=== PATIENT | female | born 1995 | race Caucasian/White ===

== ENCOUNTER 2016-07-15 17:05 | Outpatient (CLI) | payer OTHER ==
[~2016-07-15] VITALS: Ht 162.6 cm; Wt 77.1 kg
[~2016-07-15 17:05] MED LIST: BACTRIM,SEPT1 TABLET PO; FEOSOL325 MG PO; FLEXERIL10 MG PO; Feosol PO; IRON325 MG PO; KEFLEX500 MG PO; Keflex PO; MACROBID100 MG PO; MOTRIN800 MG PO; Motrin PO; NAPROSYN500 MG PO; Natalcare Rx,Pramile PO; PEN-VEE K,VEET500 MG; PERCOCET 5/31 TABLET PO; PHENERGAN PO; PHENERGAN25 MG PR; PRENATAL ONE T1 EACH PO; PRENATAL TABLE1 EAC3 PO; PROMETHAZINE HC25 M1 PO; REGLAN5 MG PO; TORADOL10 MG PO; ULTRACET1 TABLET PO; ULTRAM50 MG PO; VICODIN 5-3001 EACH PO; VICODIN,LORT1 TABLET PO; WELLBUTRIN100 MG PO; ZOFRAN ODT4 MG PO; ZOFRAN4 MG PO; ZOFRAN8 MG PO; ~No Medications
[2016-07-15 17:38] VITALS: BP 143/83
== END 2016-07-15 19:13 | disposition home or self-care (01) ==
LOC: LDRP-OP 17:05 → 2WEST 17:06
DX: O26.893 Other specified pregnancy related conditions, third trimester (principal); Z3A.37 37 weeks gestation of pregnancy
CPT/HCPCS: 59025; G0378

== ENCOUNTER 2016-07-31 03:14 | Inpatient (IN) | payer OTHER ==
[2016-07-31] VITALS (31 sets, daily range): BP systolic 106–149; BP diastolic 56–84
[~2016-07-31] VITALS: Ht 162.6 cm; Wt 79.8 kg
[2016-07-31 04:26] LABS: EOSINOPHIL (%) 0.3 % (0-5); HEMATOCRIT 29.6 % (36.0-46.0); IMMATURE GRANULOCYTE (%) 0.2 % (0.0-0.7); IMMATURE GRANULOCYTE COUNT 0.2 K/uL; LYMPHOCYTE COUNT 3.1 K/uL (1.0-2.8); MCH 27.4 PG (29.0-34.0); MCHC 33.4 G/DL (30.0-36.0); MEAN PLAT.VOLUME 10.7 uM^3 (9.5-12.4); MONOCYTE (%) 5.6 % (3-12); MONOCYTE COUNT 0.7 K/uL (0-0.8); NEUTROPHIL (%) 69.6 % (45-76); NEUTROPHIL COUNT 8.9 K/uL (1.8-6.4); PLATELET COUNT 219 K/uL (156-360); RBC DIS.WIDTH-CV 13.1 % (11.8-14.6); RBC DIS.WIDTH-SD 37.7 % (39-53); RED BLOOD COUNT 3.61 M/uL (3.80-5.20); WHITE BLOOD COUNT 12.8 K/uL (4.1-10.2)
[2016-07-31 05:54] LABS: AMPHETAMINES QUANT VALUE 0 NG/ML; BARBITUATES QUANT VALUE 0 NG/ML; BENZODIAZEPINES QUANT VALUE 0 NG/ML; BENZODIAZEPINES, URINE SCREEN Negative (200 ng/mL); MARIJUANA QUANT VALUE 0 NG/ML; OPIATES QUANTITATIVE VALUE 0 NG/ML; PHENCYCLIDINE QUANT VALUE 0 NG/ML
[2016-07-31] MEDS ORDERED: IBUPROFEN800 MG PO (19:57)
[2016-08-01 08:05] VITALS: BP 124/69
[2016-08-01 15:24] VITALS: BP 122/63
[2016-08-01 23:34] VITALS: BP 124/78
[2016-08-02 07:55] VITALS: BP 121/62
[2016-08-02] MEDS ORDERED: SERTRALINE HCL50 MG PO (09:24)
== END 2016-08-02 13:20 | disposition home or self-care (01) | DRG 775 ==
LOC: LDRP-OP 03:14 → 2WEST 03:15 → LDRP-OP 08-28 21:25
PROVIDERS: Midwife
PROC: 10E0XZZ Delivery of Products of Conception, External Approach (ICD-10-PCS; principal; 2016-07-31)
DX: O99.02 Anemia complicating childbirth (principal); F33.9 Major depressive disorder, recurrent, unspecified; Z37.0 Single live birth; Z3A.40 40 weeks gestation of pregnancy; O76 Abnormality in fetal heart rate and rhythm complicating labor and delivery; D50.8 Other iron deficiency anemias; O99.344 Other mental disorders complicating childbirth; O69.81X1 Labor and delivery complicated by cord around neck, without compression, fetus 1
CPT/HCPCS: 80306 90; 85025; C1755; J0595; J3010; J7120

== ENCOUNTER 2016-09-20 14:28 | Emergency (ER) | payer OTHER ==
[~2016-09-20] VITALS: Ht 162.6 cm; Wt 75.0 kg
[~2016-09-20 14:28] MED LIST changes: +IBUPROFEN800 MG PO; +SERTRALINE HCL50 MG PO
[2016-09-20 15:19] LABS: EOSINOPHIL (%) 1.8 % (0-5); EOSINOPHIL COUNT 0.1 K/uL (0-0.3); HEMATOCRIT 33.4 % (36.0-46.0); IMMATURE GRANULOCYTE (%) 0.2 % (0.0-0.7); INSTRUMENT ABS NEUTROPHIL CT 2.5 K/uL; LYMPHOCYTE COUNT 2.1 K/uL (1.0-2.8); MCH 26.5 PG (29.0-34.0); MCHC 32.6 G/DL (30.0-36.0); MCV 81.3 FL (83-99); MEAN PLAT.VOLUME 9.2 uM^3 (9.5-12.4); MONOCYTE (%) 6.3 % (3-12); MONOCYTE COUNT 0.3 K/uL (0-0.8); NEUTROPHIL COUNT 2.5 K/uL (1.8-6.4); PLATELET COUNT 231 K/uL (156-360); RBC DIS.WIDTH-CV 14.2 % (11.8-14.6); RBC DIS.WIDTH-SD 42.1 % (39-53); RED BLOOD COUNT 4.11 M/uL (3.80-5.20)
[2016-09-20 16:14] VITALS: BP 131/77
== END 2016-09-20 16:15 | disposition home or self-care (01) ==
LOC: EME 14:28 → EXP 14:28
PROVIDERS: Physician Assistant
DX: N92.6 Irregular menstruation, unspecified (principal); Z87.891 Personal history of nicotine dependence
CPT/HCPCS: 85025; 99281; 99284

== ENCOUNTER 2016-11-20 00:39 | Emergency (ER) | payer OTHER ==
[~2016-11-20] VITALS: Ht 162.6 cm; Wt 66.5 kg
[2016-11-20 01:35] LABS: HEMATOCRIT 30.1 % (36.0-46.0); MCH 25.7 PG (29.0-34.0); MCHC 32.6 G/DL (30.0-36.0); MCV 78.8 FL (83-99); MEAN PLAT.VOLUME 10.1 uM^3 (9.5-12.4); PLATELET COUNT 209 K/uL (156-360); RBC DIS.WIDTH-CV 14.7 % (11.8-14.6); RBC DIS.WIDTH-SD 42.3 % (39-53); RED BLOOD COUNT 3.82 M/uL (3.80-5.20); WHITE BLOOD COUNT 8.8 K/uL (4.1-10.2)
[2016-11-20 01:50] LABS: CHLORIDE 105 mEq/L (99-109); POTASSIUM 3.4 mEq/L (3.7-5.4); SODIUM 135 mEq/L (136-147)
[2016-11-20 01:52] LABS: GLUCOSE 89 mg/dL (70-99)
[2016-11-20 01:53] LABS: ANION GAP 10 MEQ/L (2-14)
[2016-11-20 01:56] LABS: GFR ESTIMATE (CALCULATED) > 59 mL/min/
[2016-11-20 01:57] LABS: UREA NITROGEN (BUN) 10 mg/dL (9-23)
[2016-11-20 02:06] LABS: QUANTITATIVE HCG < 4.0 MIU/ML
[2016-11-20 02:07] LABS: TROP-I INTERPRETATION NEGATIVE; TROPONIN-I < 0.01 ng/mL (0.0-0.30)
[2016-11-20 02:15] LABS: ADD MIUA? YES; BILIRUBIN NEGATIVE; BLOOD NEGATIVE; COLOR AMBER ((YELLOW)); GLUCOSE (STRIP) NEGATIVE; KETONES NEGATIVE; LEUKOCYTES LARGE; NITRITE POSITIVE; PROTEIN (STRIP) >=500; SPECIFIC GRAVITY 1.023 (1.000-1.030)
[2016-11-20 02:21] LABS: EOSINOPHIL (%) 0.1 % (0-5); HEMATOLOGY COMMENT 1 SMEAR COMPATIBLE; IMMATURE GRANULOCYTE (%) 0.3 % (0.0-0.7); INSTRUMENT ABS NEUTROPHIL CT 6.3 K/uL; LYMPHOCYTE COUNT 1.6 K/uL (1.0-2.8); MONOCYTE (%) 10.6 % (3-12); MONOCYTE COUNT 0.9 K/uL (0-0.8); NEUTROPHIL COUNT 6.3 K/uL (1.8-6.4); PLAT.SUFFICIENCY ADEQUATE
[2016-11-20 02:43] LABS: BACTERIA 3+ /HPF; CASTS NONE SEEN /LPF; CRYSTALS NONE SEEN; EPITHELIAL CELLS 1+ /HPF; MUCUS NONE SEEN /LPF; RED BLOOD CELLS 0-5 /HPF (0-5); UCUL ADDED? YES; WHITE BLOOD CELLS TNTC /HPF (0-5)
[2016-11-20] MEDS ORDERED: ZOFRAN4 MG PO (03:41)
[2016-11-20] MEDS ORDERED: CIPRO500 MG PO (03:41)
[2016-11-20 05:39] VITALS: BP 98/57
== END 2016-11-20 05:58 | disposition home or self-care (01) ==
LOC: EME 00:39
PROVIDERS: Emergency Medicine
DX: N10 Acute pyelonephritis (principal); N39.0 Urinary tract infection, site not specified; R51 Headache; R42 Dizziness and giddiness; R11.10 Vomiting, unspecified; D64.9 Anemia, unspecified; Z87.891 Personal history of nicotine dependence
CPT/HCPCS: 70450; 71020; 80048; 81003; 84484; 84702; 85025; 87077; 87086; 87186; 93005; 99281; 99284; J0744; J1885; J2270; J2405; J7030